=== PATIENT | female | born 1970 | race Caucasian/White ===

== ENCOUNTER 2020-03-01 06:51 | Outpatient (NON) | payer OTHER, SELFPAY ==
[2020-03-02 01:50] LABS: SARS-CoV-2 RNA PCR Negative
== END 2020-03-01 06:52 ==
LOC: ANHCOVIDDT 07:21
PROVIDERS: PCP Internal Medicine; Visit Provider Clinical Nurse Specialist
DX: Z20.828 Contact with and (suspected) exposure to other viral communicable diseases (principal); R51.9 Headache, unspecified
CPT/HCPCS: 87635; C9803; U0003

== ENCOUNTER 2021-04-06 00:22 | Day surgery (SDC) | payer OTHER, SELFPAY ==
[2021-01-15 09:54] VITALS: BMI 22.4
[2021-03-24 15:02] VITALS: BMI 22.1
--- NOTE | 2021-04-03 18:53 | WPDANESEPPF ---
Anes - Initial Pre Proc Eval Procedure: Operation Date: 04/06/21 07:30 Proposed Procedures p Screening Colonoscopy - Peter Malik MD Date/Time: 04/03/21 18:53 Surgeon: Peter Malik MD Pre Op Diagnosis: neoplasm screening Patient Data Age: 50 Gender: F Height: 1.73 m Weight: 65.9 kg Allergies Allergy/AdvReac Type Severity Reaction Status Date / Time No Known Allergies Allergy Verified 04/06/21 06:19 Home Medications Medication Instructions Recorded Confirmed Type conjugated estrogens 0.625 mg/gram 0.625 mg VAGINAL 2XW g 04/16/20 04/06/21 History vaginal cream Extreme Endurance 3 cap PO BID 01/15/21 04/06/21 History Immunity Vitamins 2 cap PO DAILY 01/15/21 04/06/21 History Lean Plus 1 cap PO BID 01/15/21 04/06/21 History Pre/Pro Biotic 1 cap PO DAILY 01/15/21 04/06/21 History Vitamin D3 10,000 units PO DAILY 01/15/21 04/06/21 History cetirizine 10 mg PO DAILY 01/15/21 04/06/21 History creatine monohydrate 1 ea PO 3XW 01/15/21 04/06/21 History fluoxetine 40 mg capsule 40 mg PO DAILY #90 cap 03/30/21 04/06/21 Rx Patient hx anesthesia problems: none Family hx anesthesia problems: none Results Review: All pre-operative results and documents have been reviewed as part of the pre-operative evaluation. [facility] Past Medical History Medical History (Updated 04/03/21 @ 18:54 by Guy Ferreira DO) Anxiety Hypothyroid IBS (irritable bowel syndrome) Social History Social History Smoking status: Never smoker Alcohol intake: current Drinks per week: 3 Substance use: never Substance use type: does not use Living arrangements: with family Spiritual care concerns: No Anes - Eval Final PreProcedure Day of Procedure 04/03/21 18:53 Patient weight: normal Heart: regular rate and rhythm Lungs: clear to auscultation and normal air movement Airway: Mallampati scale class II Neurological: alert and oriented Last oral intake: >/= 8 hours ASA classification: II Emergent: no Anesthetic plan: proceed Anesthesia type and monitoring: general GIVS and standard monitoring Results Review: All pre-operative results and documents have been reviewed as part of the pre-operative evaluation. Informed Consent: The patient's anesthetic plan and its attendant risks and benefits were discussed with the patient/family/POA. Questions were solicited and answers provided to the satisfaction of the patient/family/POA.
[2021-04-06 06:10] VITALS: BP 114/61; PULSE 65; RESP 18; TEMP 36.3; O2SAT 100; BMI 24.8
[2021-04-06] MEDS: LACTATED RINGERS 1,000 ML 150 ML IV CONT (06:32)
--- NOTE | 2021-04-06 07:36 | PM.HPGS ---
History of Present Illness History of Present Illness Consent: Risks, benefits, and alternatives have been discussed and questions answered. Patient agrees to proceed with procedure. Chief complaint: neoplasm screening Narrative: Ally Zee is a 50 year old female here for first screening colonoscopy Review of Systems Constitutional: Constitutional: Denies headache(s) and Denies weakness Eyes: Eyes: Denies blurry vision ENT: Reports Normal hearing present, Denies headache(s) and Denies neck pain Cardiovascular: Cardiovascular: Denies chest pain and Denies dyspnea Respiratory: Respiratory: Denies dyspnea Gastrointestinal: Gastrointestinal: Reports no additional gastrointestinal complaints Genitourinary: Genitourinary: Denies dysuria Musculoskeletal: Musculoskeletal: Denies neck pain Integumentary/Breasts: Skin/Breast: Denies dry skin Neurologic: Reports Normal hearing present, Denies headache(s) and Denies weakness Psychiatric: Psychiatric: Denies anxiety Endocrine: Endocrine: Denies change in body appearance Hematologic/Lymphatic: Hematologic/Lymphatic: Denies easy bleeding Allergic/Immunologic: Allergic/Immunologic: Denies urticaria PMF Past Medical History Medical History (Updated 04/03/21 @ 18:54 by Guy Ferreira DO) Anxiety Hypothyroid IBS (irritable bowel syndrome) Social History Social History Smoking status: Never smoker Alcohol intake: current Drinks per week: 3 Substance use: never Substance use type: does not use Living arrangements: with family Spiritual care concerns: No Meds Home Medications and Allergies Home Medications Medication Instructions Recorded Confirmed Type conjugated estrogens 0.625 mg/gram 0.625 mg VAGINAL 2XW g 04/16/20 04/06/21 History vaginal cream Extreme Endurance 3 cap PO BID 01/15/21 04/06/21 History Immunity Vitamins 2 cap PO DAILY 01/15/21 04/06/21 History Lean Plus 1 cap PO BID 01/15/21 04/06/21 History Pre/Pro Biotic 1 cap PO DAILY 01/15/21 04/06/21 History Vitamin D3 10,000 units PO DAILY 01/15/21 04/06/21 History cetirizine 10 mg PO DAILY 01/15/21 04/06/21 History creatine monohydrate 1 ea PO 3XW 01/15/21 04/06/21 History fluoxetine 40 mg capsule 40 mg PO DAILY #90 cap 03/30/21 04/06/21 Rx Allergies Allergy/AdvReac Type Severity Reaction Status Date / Time No Known Allergies Allergy Verified 04/06/21 06:19 Vital Signs Vital Signs - 24 hr 04/06/21 06:10 Temperature 97.4 F L Pulse Rate 65 Respiratory Rate 18 Blood Pressure 114/61 Pulse Oximetry 100 Exam Const: General: comfortable and no acute distress HENMT: General nose exam: Normal nares present Eyes: General: appearance normal, both eyes and all related structures Neck: Neck: no JVD Resp: Auscultation: clear to auscultation bilaterally Cardio: Rate: regular rate Rhythm: regular rhythm GI: Inspection: non-distended GI Palp: Yes Soft to palpation Skin: General skin exam: normal color Neuro: General: gait normal Speech: normal speech Extrem: General: normal to inspection Psych: Mental Status: mental status grossly normal Assessment and Plan Assessment and plan (1) Screening for colon cancer: Code(s): Z12.11 - Encounter for screening for malignant neoplasm of colon Status: Acute Assessment and Plan: colonoscopy
[2021-04-06 08:00] VITALS: BP 96/56; PULSE 57; RESP 15; O2SAT 100
[2021-04-06 08:10] VITALS: BP 107/67; PULSE 60; RESP 19; O2SAT 100
[2021-04-06 08:20] VITALS: BP 117/71; PULSE 61; RESP 15; O2SAT 100
== END 2021-04-06 08:25 | disposition home or self-care (01) ==
PROVIDERS: PCP Internal Medicine; Visit Provider Internal Medicine Gastroenterology
PROC: 0DJD8ZZ Inspection of Lower Intestinal Tract, Via Natural or Artificial Opening Endoscopic (ICD-10-PCS; CPT 45378; principal; 2021-04-06 07:30)
DX: Z12.11 Encounter for screening for malignant neoplasm of colon (principal); E03.9 Hypothyroidism, unspecified; K58.9 Irritable bowel syndrome, unspecified; K64.8 Other hemorrhoids
CPT/HCPCS: 45378; J2704; J7120

== ENCOUNTER → 2021-11-19 13:08 | Outpatient (CLI) | payer OTHER, SELFPAY ==
--- NOTE | ~2021-11-19 | MM_ITS ---
EXAMINATION: MM screening raúl BI w sudhir HISTORY: Screening TECHNIQUE: Craniocaudal and mediolateral oblique 3-D tomosynthesis images were obtained and synthetic 2-D images were generated. CAD analysis was submitted and interpreted. COMPARISON: 10/26/2013 BREAST PARENCHYMAL COMPOSITION: There are scattered areas of fibroglandular density. FINDINGS: There is no evidence of suspicious mass, calcification, or architectural distortion to sugg est malignancy in either breast. There has been no suspicious interval change. IMPRESSION: 1. No mammographic evidence of malignancy. 2. Recommend routine screening mammography in one year. BI-RADS Category 1: Negative Reviewed, dictated and finalized at location A.
--- NOTE | ~2021-11-19 | DEXA_ITS ---
Bone Density Report Name: FATIMAH MCALLISTER Age: 51 Sex: Female Ethnicity: White Date of : 1970 Indication: postmenopausal; screening for osteoporosis; height loss; Referring Provider: Liv Ribera Study: Bone densitometry was performed. Exam Date: November 19, 2021 Accession number: [id number] Bone Density: Region BMD T-score Z-score Classification AP Spine (L1-L4) 0.798 -2.3 -1.5 Osteopenia Femoral Neck (Left) 0.707 -1.3 -0.5 Osteopenia Total Hip (Left) 0.808 -1.1 -0.6 Osteopenia Femoral Neck (Right) 0.682 -1.5 -0.7 Osteopenia Total Hip (Right) 0.802 -1.2 -0.6 Osteopenia Total Hip Mean 0.805 -1.2 -0.6 Osteopenia World Health Organization criteria for BMD impression classify patients as: Normal (T-score at or above -1.0), Osteopenia (T-score between -1.0 and -2.5), or Osteoporosis (T-score at or below -2.5). 10-year Fracture Risk(1): Major Osteoporotic Fracture 5.1% Hip Fracture 0.4% Reported Risk Factors: [place] (), Neck BMD=0.682, BMI=25.8 (1) FRAX(R) Version 3.08. Fracture probability calculated for an untreated patient. Fracture probability may be lower if the patient has received treatment. Clinical Information Provided by Patient: Has used the following medications: Vitamin D Patient maximum height was 68 Menopause Age: 43 Drinks caffeinated beverages Onset of menses at age 13 Number of children 0 Missed period for more than 6 months in a row Impression: The patient has low bone mass, based on the Total Spine T-score. The patient has an estimated ten-year risk of hip fracture of 0.4% and an estimated ten-year risk of major fracture of 5.1%, based on the WHO FRAX algorithm. Discussion: BONE DENSITY IS LOW AT ONE OR MORE SKELETAL SITES. This patient's lowest T-score is low at one or more skeletal sites. It meets the World Health Organization's (WHO) criteria for ?low bone mass? (T-score between -1.0 and -2.5). The patient's 10-year risk of fracture as calculated by FRAX is less than the threshold where pharmacological therapy is recommended by the National Osteoporosis Foundation (NOF). However, all treatment decisions require clinical judgment and consideration of individual patient factors, including patient preferences, comorbidities, previous drug use, risk factors not captured in the FRAX model (e.g., frailty, falls, vitamin D deficiency, increased bone turnover, interval significant decline in bone density) and possible under or overestimation of fracture risk by FRAX. The patient should follow a healthful lifestyle (good nutrition with adequate calcium and vitamin D, and appropriate weight-bearing exercise). Follow-Up: Consider repeating this study in 2 to 3 years to reassess this patient's status, or sooner if there is some new clinical indication. Reported b
== END ==
PROVIDERS: PCP Internal Medicine; Visit Provider Clinical Nurse Specialist
DX: Z12.31 Encounter for screening mammogram for malignant neoplasm of breast (principal); Z78.0 Asymptomatic menopausal state; M85.88 Other specified disorders of bone density and structure, other site; M85.851 Other specified disorders of bone density and structure, right thigh; M85.852 Other specified disorders of bone density and structure, left thigh
CPT/HCPCS: 77063; 77067; 77080

== ENCOUNTER → 2022-11-27 07:52 | Outpatient (CLI) | payer OTHER, SELFPAY ==
--- NOTE | ~2022-11-27 | MM_ITS ---
EXAMINATION: MM screening raúl BI w sudhir HISTORY: Screening TECHNIQUE: Craniocaudal and mediolateral oblique 3-D tomosynthesis images were obtained and synthetic 2-D images were generated. CAD analysis was submitted and interpreted. COMPARISON: Comparison to multiple prior studies sequentially, with oldest reviewed study dated 10/26. BREAST PARENCHYMAL COMPOSITION: There are scattered areas of fibroglandular density. FINDINGS: There is no evidence of suspicious mass, calcification, or architectural distortion to sugg est malignancy in either breast. There has been no suspicious interval change. IMPRESSION: 1. No mammographic evidence of malignancy. 2. Recommend routine screening mammography in one year. BI-RADS Category 1: Negative Reviewed, dictated and finalized at location A.
== END ==
PROVIDERS: PCP Nurse Practitioner Obstetrics & Gynecology; Visit Provider Advanced Practice Midwife
DX: Z12.31 Encounter for screening mammogram for malignant neoplasm of breast (principal)
CPT/HCPCS: 77063; 77067

== ENCOUNTER 2024-04-19 15:49 | Outpatient (CLI) | payer OTHER, SELFPAY ==
--- NOTE | ~2024-04-19 | MM_ITS ---
EXAMINATION: MM screening raúl BI w sudhir HISTORY: Screening mammogram TECHNIQUE: Craniocaudal and mediolateral oblique 3-D tomosynthesis images were obtained and synthetic 2-D images were generated. CAD analysis was submitted and interpreted. COMPARISON: 11/27/2022, 11/19/2021 BREAST PARENCHYMAL COMPOSITION:Not Dense. There are scattered areas of fibroglandular density. FINDINGS: No suspicious mass, calcification, or architectural distortion are identified in either luciano ast to suggest malignancy. There has been no suspicious interval change. IMPRESSION: No mammographic evidence of malignancy. Recommend routine screening mammography in one year. BI-RADS Category 1: Negative Reviewed, dictated and finalized at location . [employer]
== END 2024-04-19 15:50 | disposition home or self-care (01) ==
LOC: MICIMG 15:50
DX: Z12.31 Encounter for screening mammogram for malignant neoplasm of breast (principal)
CPT/HCPCS: 77063; 77067